=== PATIENT | male | born 1970 | race Caucasian/White ===

== ENCOUNTER 2018-07-23 20:26 | Inpatient (IN) | payer MEDICARE, SELFPAY ==
[2018-07-23 21:07] LABS: HEMATOCRIT 39.9 % (42.0-52.0); HEMOGLOBIN 13.3 g/dl (13.5-17.5); MEAN CORPUSCULAR HEMOGLOBIN 30.8 pg (27.0-33.0); MEAN CORPUSCULAR HGB CONC 33.3 g/dl (32.0-36.5); MEAN CORPUSCULAR VOLUME 92.4 fl (80.0-96.0); PLATELET COUNT, AUTOMATED 228 10^3/uL (150-450); RED BLOOD COUNT 4.32 10^6/uL (4.30-6.10); RED CELL DISTRIBUTION WIDTH 13.5 % (11.5-14.5); WHITE BLOOD COUNT 8.3 10^3/uL (4.0-10.0)
[2018-07-23 21:38] LABS: AMPHETAMINES LEVEL URINE NEGATIVE (NEGATIVE); BARBITURATES URINE NEGATIVE (NEGATIVE); BENZODIAZEPINES URINE NEGATIVE (NEGATIVE); CANNABINOIDS URINE NEGATIVE (NEGATIVE); COCAINE METABOLITE URINE NEGATIVE (NEGATIVE); METHADONE URINE NEGATIVE (NEGATIVE); OPIATES URINE NEGATIVE (NEGATIVE); PHENCYCLIDINE URINE NEGATIVE (NEGATIVE)
[2018-07-23 22:12] LABS: ACETAMINOPHEN LEVEL < 2.0 UG/ML (10.0-30.0); ALBUMIN 3.9 GM/DL (3.2-5.2); ALBUMIN/GLOBULIN RATIO 1.05 (1.00-1.93); ALKALINE PHOSPHATASE 91 U/L (45-117); ALT/SGPT 26 U/L (12-78); ANION GAP 10 MEQ/L (8-16); AST/SGOT 17 U/L (7-37); BILIRUBIN,DIRECT 0.2 MG/DL (0.0-0.2); BILIRUBIN,TOTAL 0.5 MG/DL (0.2-1.0); BLOOD UREA NITROGEN 9 MG/DL (7-18); CARBON DIOXIDE LEVEL 27 MEQ/L (21-32); CHLORIDE LEVEL 104 MEQ/L (98-107); CREATININE FOR GFR 0.62 MG/DL (0.70-1.30); ETHYL ALCOHOL (ETHANOL) < 0.003 % (0.000-0.010); GLOMERULAR FILTRATION RATE > 60.0 (>60); GLUCOSE, FASTING 102 MG/DL (70-100); POTASSIUM SERUM 3.7 MEQ/L (3.5-5.1); SALICYLATE LEVEL < 1.7 MG/DL (5.0-30.0); SODIUM LEVEL 141 MEQ/L (136-145); TOTAL PROTEIN 7.6 GM/DL (6.4-8.2)
[2018-07-23] MEDS ORDERED: MOM 30ML SUSPENSION UDC PO (23:30)
[2018-07-23] MEDS ORDERED: MAALOX 30 ML SUSP *UDC PO (23:30)
[2018-07-23] MEDS ORDERED: ACETAMINOPHEN TAB 650MG DOSE (2X325MG) PO (23:30)
[2018-07-24] MEDS: PALIPERIDONE 3 MG ER TAB (INVEGA) PO ×2 (00:35→21:58)
[2018-07-24] MEDS: traZODone 50 MG TAB PO (00:35)
[2018-07-25] MEDS: OLANZapine 5 MG TAB PO ×2 (13:10→21:27)
[2018-07-25] MEDS: PALIPERIDONE 3 MG ER TAB (INVEGA) PO (21:26)
[2018-07-25] MEDS: traZODone 50 MG TAB PO (21:27)
[2018-07-26] MEDS: PALIPERIDONE 3 MG ER TAB (INVEGA) PO (12:42)
[2018-07-26] MEDS: traZODone 50 MG TAB PO (21:29)
[2018-07-26] MEDS: PALIPERIDONE 6 MG ER TAB (INVEGA) PO (21:29)
[2018-07-27] MEDS: PALIPERIDONE 3 MG ER TAB (INVEGA) PO (08:55)
[2018-07-27] MEDS: [UNRECOGNIZED DRUG - REMARK] XX (09:00)
[2018-07-27] MEDS: PALIPERIDONE PALMITATE 234 MG/1.5 ML INJ (INVEGA SUSTENNA)(J2426) IM (11:00)
[2018-07-27] MEDS: PALIPERIDONE 6 MG ER TAB (INVEGA) PO (21:00)
[2018-07-28] MEDS: PALIPERIDONE 3 MG ER TAB (INVEGA) PO (08:05)
[2018-07-28] MEDS: [UNRECOGNIZED DRUG - REMARK] XX (09:00)
[2018-07-28] MEDS: traZODone 50 MG TAB PO (21:31)
[2018-07-28] MEDS: PALIPERIDONE 6 MG ER TAB (INVEGA) PO (21:31)
[2018-07-29] MEDS: PALIPERIDONE 3 MG ER TAB (INVEGA) PO (08:32)
[2018-07-29] MEDS: [UNRECOGNIZED DRUG - REMARK] XX (08:38)
[2018-07-29] MEDS: PALIPERIDONE PALMITATE 234 MG/1.5 ML INJ (INVEGA SUSTENNA)(J2426) IM (10:19)
[2018-07-29] MEDS: PALIPERIDONE 6 MG ER TAB (INVEGA) PO (20:30)
[2018-07-30] MEDS: PALIPERIDONE 3 MG ER TAB (INVEGA) PO (08:36)
[2018-07-30] MEDS: [UNRECOGNIZED DRUG - REMARK] XX (08:38)
[2018-07-30] MEDS: traZODone 50 MG TAB PO (20:46)
[2018-07-30] MEDS: PALIPERIDONE 6 MG ER TAB (INVEGA) PO (20:46)
[2018-07-31] MEDS: PALIPERIDONE 3 MG ER TAB (INVEGA) PO (08:43)
[2018-07-31] MEDS: [UNRECOGNIZED DRUG - REMARK] XX (09:00)
[2018-07-31] MEDS: traZODone 50 MG TAB PO (21:17)
[2018-07-31] MEDS: PALIPERIDONE 6 MG ER TAB (INVEGA) PO (21:17)
[2018-08-01] MEDS: PALIPERIDONE 3 MG ER TAB (INVEGA) PO (08:22)
[2018-08-01] MEDS: [UNRECOGNIZED DRUG - REMARK] XX (08:23)
[2018-08-01] MEDS: PALIPERIDONE PALMITATE 156 MG/1ML INJ(INVEGA SUSTENNA)(J2426) IM (11:37)
[2018-08-01] MEDS: PALIPERIDONE 6 MG ER TAB (INVEGA) PO (20:58)
[2018-08-01] MEDS: traZODone 50 MG TAB PO (20:58)
[2018-08-02] MEDS: [UNRECOGNIZED DRUG - REMARK] XX (09:00)
[2018-08-02] MEDS: PALIPERIDONE 3 MG ER TAB (INVEGA) PO (09:28)
[2018-08-02] MEDS: PALIPERIDONE PALMITATE 156 MG/1ML INJ(INVEGA SUSTENNA)(J2426) IM (11:00)
[2018-08-02] MEDS: PALIPERIDONE 6 MG ER TAB (INVEGA) PO (20:39)
[2018-08-03] MEDS: PALIPERIDONE 3 MG ER TAB (INVEGA) PO (08:44)
[2018-08-03] MEDS: [UNRECOGNIZED DRUG - REMARK] XX (09:00)
[2018-08-03] MEDS: risperiDONE 2 MG TAB PO (20:48)
[2018-08-03] MEDS: traZODone 50 MG TAB PO (20:48)
[2018-08-04] MEDS: risperiDONE 2 MG TAB PO (20:37)
[2018-08-04] MEDS: traZODone 100 MG TAB PO (20:37)
[2018-08-05] MEDS: traZODone 100 MG TAB PO (20:47)
[2018-08-05] MEDS: risperiDONE 2 MG TAB PO (20:47)
[2018-08-06] MEDS: risperiDONE 2 MG TAB PO (21:35)
[2018-08-06] MEDS: traZODone 100 MG TAB PO (21:36)
[2018-08-07] MEDS: risperiDONE 2 MG TAB PO (20:47)
[2018-08-07] MEDS: traZODone 100 MG TAB PO (20:47)
[2018-08-08] MEDS: NIX CREME RINSE 1% 60 ML KIT TOP (11:55)
[2018-08-08] MEDS: risperiDONE 2 MG TAB PO (20:34)
[2018-08-08] MEDS: traZODone 100 MG TAB PO (20:34)
[2018-08-09] MEDS: traZODone 100 MG TAB PO (20:43)
[2018-08-09] MEDS: risperiDONE 2 MG TAB PO (20:43)
[2018-08-10] MEDS: traZODone 100 MG TAB PO (21:38)
[2018-08-10] MEDS: risperiDONE 2 MG TAB PO (21:38)
[2018-08-11] MEDS: traZODone 100 MG TAB PO (20:10)
[2018-08-11] MEDS: risperiDONE 2 MG TAB PO (20:10)
== END 2018-08-12 09:30 | disposition home or self-care (01) | DRG 885 ==
LOC: M PSY 07-24 00:05 → M ED 20:26 → M ED INP 23:22
DX: F20.0 Paranoid schizophrenia (principal); Z91.19 Patient's noncompliance with other medical treatment and regimen